=== PATIENT | male | born 1945 | race Caucasian/White ===

== ENCOUNTER → 2016-08-15 | Outpatient (CLI) | payer BC ==
[~2016-08-15] MED LIST: ALL100 PO; ASPCH81X PO; FINA5TAB PO; LPR25 PO; OMEP20CA59 PO; SIMV40TA4 PO
== END | disposition home or self-care (01) ==
LOC: C.LAB 15:14
PROVIDERS: ATTEND Nurse Practitioner Family
DX: N39.0 Urinary tract infection, site not specified (principal); R39.9 Unspecified symptoms and signs involving the genitourinary system; N40.1 Benign prostatic hyperplasia with lower urinary tract symptoms

== ENCOUNTER → 2016-08-29 | Outpatient (CLI) | payer BC ==
[2016-08-29 12:55] LABS: BLOOD UREA NITROGEN 16 mg/dl (7-18); BUN/CREATININE RATIO 14.5 (10-20)
--- NOTE | 2016-09-02 11:54 | CODING QUERY MEDICAL NECESSITY ---
SUPPORTING DIAGNOSIS NEEDED A supporting diagnosis is required for the test/procedure performed on this patient in order for us to be reimbursed by the patient's insurance. Please provide a supporting diagnosis for the following test/procedure listed below next to the test name along with your signature. *If there is no additional diagnosis for this patient that would support the following test/procedure please document that below next to the test/procedure. Test(s)/Procedure(s) that require a supporting diagnosis: * PSA DIAGNOSIS: * DOS: 08/29/16 Provider Signature: Date: Thank you Skyla Pitts [employer] Once completed, please kindly fax back to [phone] For questions please call [phone]
== END | disposition home or self-care (01) ==
LOC: C.LAB 10:51
PROVIDERS: ATTEND Urology
DX: F52.8 Other sexual dysfunction not due to a substance or known physiological condition (principal); N40.1 Benign prostatic hyperplasia with lower urinary tract symptoms; R97.20 Elevated prostate specific antigen [PSA]

== ENCOUNTER → 2016-08-30 | Outpatient (CLI) | payer BC ==
[~2016-08-30] MED LIST changes: +OPTIRAY 320 IV PRN
--- NOTE | 2016-08-30 16:59 | DIAGNOSTIC IMAGING REPORT ---
ABDOMEN AND PELVIS CT EXAMINATION PRE AND POST INTRAVENOUS CONTRAST CT DOSE: 1570.05 mGy.cm HISTORY: Hematuria R31.0 Gross [id number] TECHNIQUE: Multiaxial CT images of the abdomen and pelvis were performed pre and post intravenous contrast enhancement. COMPARISON STUDY: 08/10/2011 FINDINGS: Lung bases are clear. Fatty infiltration of liver is present. Kidneys enhance uniformly. There are several left renal cortical cyst with mild bilateral renal lipomatosis. No significant space-occupying lesion is appreciated. There are no abnormal enhancement characteristics of the left renal cyst. Ureters are normal in course and caliber. There is no obstructive change. There are no major filling defects. Prostate is midline. It is enlarged. Bladder is midline. There is a small fat-containing left inguinal hernia unchanged in the prior study. Bowel pattern overall is nonobstructive. Small fat-containing periumbilical hernia. There is no significant abdominal pelvic or inguinal adenopathy. IMPRESSION: 1. Several left renal cysts. 2. Otherwise negative urinary tracts. 3. Prostatic enlargement. 4. Fatty infiltration of the liver. Electronically signed by: Alex Beltrán M.D. 08/30/2016 4:58 PM Dictated Date/Time: 08/30/2016 4:53 PM
== END | disposition home or self-care (01) ==
LOC: C.CTS 16:18
PROVIDERS: ATTEND Urology
DX: R31.0 Gross hematuria (principal); N28.1 Cyst of kidney, acquired; K76.0 Fatty (change of) liver, not elsewhere classified; N40.1 Benign prostatic hyperplasia with lower urinary tract symptoms

== ENCOUNTER → 2017-05-25 | Outpatient (CLI) | payer BC ==
[~2017-05-25] MED LIST changes: -OPTIRAY 320 IV PRN
[2017-05-25 10:39] LABS: BASO % 0.3 %; BASO ABS # 0.02 K/uL (0-0.2); EOS % 2.6 %; EOS ABS # 0.19 K/uL (0-0.5); HEMATOCRIT 51.9 % (42-52); HEMOGLOBIN 18.2 g/dL (14.0-18.0); IG# 0.03 K/uL (0.00-0.02); LYMPH % 26.1 %; LYMPH ABS # 1.89 K/uL (1.2-3.4); MEAN CORPUSCULAR HEMOGLOBIN 32.6 pg (25-34); MEAN CORPUSCULAR HGB CONC 35.1 g/dl (32-36); MEAN PLATELET VOLUME 10.1 fL (7.4-10.4); MONO % 11.9 %; MONO ABS # 0.86 K/uL (0.11-0.59); NEUT % 58.7 %; NEUT ABS # 4.24 K/uL (1.4-6.5); PLATELET COUNT 201 K/uL (130-400); RED CELL DISTRIBUTION WIDTH CV 13.6 % (11.5-14.5); RED CELL DISTRIBUTION WIDTH SD 45.9 fL (36.4-46.3); WHITE BLOOD COUNT 7.23 K/uL (4.8-10.8)
[2017-05-25 11:08] LABS: ALBUMIN 3.7 gm/dl (3.4-5.0); ALT/SGPT 35 U/L (12-78); AST/SGOT 20 U/L (15-37); BLOOD UREA NITROGEN 16 mg/dl (7-18); CALCIUM 9.1 mg/dl (8.5-10.1); CARBON DIOXIDE 28 mmol/L (21-32); CHOLESTEROL 158 mg/dl (0-200); CREATININE 1.08 mg/dl (0.60-1.40); GLUCOSE 103 mg/dl (70-99); SODIUM 141 mmol/L (136-145); URIC ACID 5.6 mg/dl (2.6-7.2)
[2017-05-25 11:16] LABS: HEMOGLOBIN A1C 5.4 % (4.5-5.6)
[2017-05-25 11:17] LABS: ALKALINE PHOSPHATASE 100 U/L (45-117); LDL CHOLESTEROL CALCULATED 92 mg/dl; TRANSFERRIN 250 mg/dl (200-360)
--- NOTE | 2017-06-02 09:03 | CODING QUERY NO DIAGNOSIS ---
: 1945 TREATMENT RENDERED WITHOUT A DIAGNOSIS To promote full compliance with coding requirements relating to patient care, physician participation is requested in all cases of certified procedural coder uncertainty. Please assist us with providing a diagnosis/symptom for the test(s) below: A diagnosis/symptom was not documented on your Order. A valid diagnosis/symptom is required to bill all insurances. Please remember that we are unable to code a diagnosis of rule out, probable, possible, questionable, or suspected. Tests that require a diagnosis: DOS: 05/25/17 * COMPREHENSIVE METABOLIC PANEL DIAGNOSIS: * CREATINE PHOSPHOKINASE DIAGNOSIS: * LIPPID PROFILE FASTING DIAGNOSIS: * PROSTATE SPECIFIC ANTIGEN DIAGNOSIS: * T4 DIAGNOSIS: * TRANSFERRIN % SAT + TRANSFERRIN DIAGNOSIS: * THYROID STIMULATING HORMONE DIAGNOSIS: * URIC ACID DIAGNOSIS: * HEMOGLOBIN A1C DIAGNOSIS: * CBC WITH AUTO DIFFERENTIAL DIAGNOSIS: * VITAMIN B12 DIAGNOSIS: * VITAMIN D, 25 HYDROXY DIAGNOSIS: Provider Signature: Date: Thank you Brianna Rodriguez [facility] Information Management Once completed, please kindly fax back to [phone] For questions please call [phone]
== END | disposition home or self-care (01) ==
LOC: C.LAB1850 09:29
PROVIDERS: ATTEND Family Medicine
DX: Z01.89 Encounter for other specified special examinations (principal)